=== PATIENT | female | born 1970 | race Caucasian/White ===

== ENCOUNTER 2016-10-29 13:43 | Emergency (ER) | payer OTHER ==
[2016-10-29 14:01] VITALS: BP 132/67
--- NOTE | 2016-10-29 14:19 | UC ---
Psychiatric Complaint HPI - HPI Summary HPI Summary: 46 YEAR OLD FEMALE PRESENTS WITH COMPLAINS OF ANXIETY. I WILL SEND HER TO THE ER. - History Of Current Complaint Chief Complaint: UCMedRefill Stated Complaint: ANXIETY Time Seen by Provider: 10/29/16 14:15 Hx Last Menstrual Period: 10/15/16 - Allergies/Home Medications Allergies/Adverse Reactions: Allergies Allergy/AdvReac Type Severity Reaction Status Date / Time No Known Allergies Allergy Verified 10/29/16 14:01 PMH/Surg Hx/FS Hx/Imm Hx Previously Healthy: Yes - Surgical History Surgical History: Yes Surgery Procedure, Year, and Place: tubal - Social History Alcohol Use: None Substance Use Type: None Smoking Status (MU): Heavy Every Day Tobacco Smoker Type: Cigarettes Amount Used/How Often: 2 ppd Length of Time of Smoking/Using Tobacco: 26 yrs Have You Smoked in the Last Year: Yes Review of Systems Constitutional: Negative Skin: Negative Eyes: Negative ENT: Negative Respiratory: Negative Cardiovascular: Negative Gastrointestinal: Negative Genitourinary: Negative Motor: Negative Neurovascular: Negative Musculoskeletal: Negative Neurological: Negative Psychological: Anxious All Other Systems Reviewed And Are Negative: Yes Physical Exam Triage Information Reviewed: Yes Vital Signs: Initial Vital Signs Temp 36.8 C 10/29/16 13:55 Pulse 83 10/29/16 13:55 Resp 16 10/29/16 13:55 BP 132/67 10/29/16 13:55 Pulse Ox 98 10/29/16 13:55 Eye Exam: Normal ENT Exam: Normal Dental Exam: Normal Neck exam: Normal Neck: Positive: 1 Respiratory Exam: Normal Cardiovascular Exam: Normal Abdominal Exam: Normal Musculoskeletal Exam: Normal Neurological Exam: Normal Psychological: Positive: Consolable Skin Exam: Normal Psych Complaint Course/Dx - Differential Dx/Diagnosis Provider Diagnoses: ANXIETY Discharge - Discharge Plan Condition: Stable Disposition: HOME Patient Education Materials: Generalized Anxiety Disorder (ED) Referrals: Juan Omalley MD [Primary Care Provider] -
== END 2016-10-29 14:30 | disposition home or self-care (01) ==
LOC: UCCORT 13:43
DX: F41.9 Anxiety disorder, unspecified (principal); F17.210 Nicotine dependence, cigarettes, uncomplicated
CPT/HCPCS: 99211; G0463